=== PATIENT | male | born 1960 | race African-American/Black ===

== ENCOUNTER 2021-07-17 09:51 | Inpatient (IN) | payer OTHER ==
[2021-07-17] MEDS ORDERED: MAG HYDROX/AL HYDROX/SIMETH 30 ML UNIT-DOSE CUP PO PRN (11:43)
[2021-07-17] MEDS ORDERED: guaiFENesin 200 MG/10 ML 10 ML UNIT-DOSE CUPS PO PRN (11:43)
[2021-07-17] MEDS ORDERED: P-EPHED 60MG/TRIPROLIDI 2.5MG TABLET PO PRN (11:43)
[2021-07-17] MEDS ORDERED: MAGNESIUM HYDROX 2400MG/30ML ORAL SUSPENSION 30 ML CUP PO PRN (11:43)
[2021-07-17] MEDS ORDERED: MAGNESIUM CITRATE 300 ML BOTTLE PO PRN (11:43)
[2021-07-17] MEDS ORDERED: LOPERAMIDE HCL 2 MG CAPSULE PO PRN (11:43)
[2021-07-17] MEDS ORDERED: NICOTINE 10 MG CARTRIDGE (INHALER) IH PRN (11:43)
[2021-07-17 16:31] VITALS: BMI 32.5
[2021-07-17] MEDS: NICOTINE 14 MG/24 HOURS TOPICAL PATCH TD SCH (17:25)
[2021-07-17] MEDS: hydrOXYzine PAMOATE 25 MG CAPSULE (FP) PO SCH ×2 (17:25→21:07)
[2021-07-17] MEDS: amLODIPine BESYLATE 10 MG TABLET (FP) PO SCH (17:25)
[2021-07-17] MEDS: IBUPROFEN 400 MG TABLET (FP) PO PRN (17:26)
[2021-07-17] MEDS: PRENATAL VITAMINS W/ FOLIC ACID TABLET (FP) PO SCH (17:30)
[2021-07-17 18:06] LABS: HEMATOCRIT 31.2 % (35.4-49); HEMOGLOBIN 9.7 GM/dL (11.7-16.9); MCH 24.2 pg (25.7-33.7); MCHC 31.2 g/dl (32.0-35.9); MEAN CELL VOLUME 77.4 fl (80-96); MEAN PLT VOLUME 8.6 fl (7.5-11.1); PLATELET COUNT 224 10^3/uL (134-434); RBC 4.03 M/mm3 (4.00-5.60); WHITE BLOOD COUNT 6.5 K/mm3 (4.0-10.0)
[2021-07-17 18:22] LABS: ALBUMIN 4.1 g/dl (3.4-5.0); BLOOD UREA NITROGEN 19.7 mg/dL (7-18)
[2021-07-17 18:25] LABS: CREATININE 1.7 mg/dL (0.55-1.3)
[2021-07-17 18:27] LABS: BILIRUBIN,TOTAL 0.8 mg/dL (0.2-1); TOT PROT 7.4 g/dl (6.4-8.2)
[2021-07-17 18:39] LABS: SYPHILIS W/ RPR CONF NON-REACTIVE (NONREACTIVE)
[2021-07-17] MEDS: AMIODARONE HCL 200 MG TABLET PO SCH (18:50)
[2021-07-17] MEDS: GABAPENTIN 300 MG CAPSULE PO SCH (21:07)
[2021-07-17] MEDS: THIAMINE HCL 100 MG TABLET (FP) PO SCH (21:07)
[2021-07-17] MEDS: ATORVASTATIN CA 40 MG TABLET (FP) PO SCH (21:07)
[2021-07-17] MEDS: APIXABAN 5 MG TABLET PO SCH (21:07)
[2021-07-17] MEDS: MELATONIN 5 MG TABLETS PO SCH (21:07)
[2021-07-18] MEDS: GABAPENTIN 300 MG CAPSULE PO SCH ×3 (06:46→21:25)
[2021-07-18] MEDS: hydrOXYzine PAMOATE 25 MG CAPSULE (FP) PO SCH ×2 (06:46→11:06)
[2021-07-18] MEDS: ASPIRIN 81 MG CHEWABLE TABLETS PO SCH (11:00)
[2021-07-18] MEDS: APIXABAN 5 MG TABLET PO SCH ×2 (11:00→21:25)
[2021-07-18] MEDS: IBUPROFEN 400 MG TABLET (FP) PO PRN (11:04)
[2021-07-18] MEDS: AMIODARONE HCL 200 MG TABLET PO SCH (11:04)
[2021-07-18] MEDS: NICOTINE 14 MG/24 HOURS TOPICAL PATCH TD SCH (11:06)
[2021-07-18] MEDS: amLODIPine BESYLATE 10 MG TABLET (FP) PO SCH (11:06)
[2021-07-18] MEDS: PRENATAL VITAMINS W/ FOLIC ACID TABLET (FP) PO SCH (11:06)
[2021-07-18] MEDS ORDERED: SERTRALINE HCL 50 MG TABLET (FP) PO ONE (11:15)
[2021-07-18] MEDS ORDERED: hydrOXYzine PAMOATE 25 MG CAPSULE (FP) PO PRN (13:08)
[2021-07-18] MEDS: ACETAMINOPHEN 325 MG TABLET (FP) PO PRN (14:30)
[2021-07-18] MEDS: FERROUS SO4 325 MG TABLET (FP) PO SCH (17:07)
[2021-07-18 21:24] LABS: EPI CELLS >36 /uL (0-25.1); HYALINE CASTS 16 /uL (0-3.1); PH,URINE 5.5 (5.0-8.0); URINE APPEARANCE TURBID; URINE BACTERIA 12 /uL (0-1359); URINE BILIRUBIN 1+ (NEGATIVE); URINE COLOR DK YELLOW; URINE GLUCOSE (UA) NEGATIVE (NEGATIVE); URINE KETONE TRACE (NEGATIVE); URINE LEUK ESTERASE NEGATIVE (NEGATIVE); URINE NITRITE NEGATIVE (NEGATIVE); URINE PROTEIN 1+ (NEGATIVE); URINE RBC 23 /uL (0-23.9); URINE UROBILINOGEN 0.2 mg/dL (0.2-1.0); URINE WBC 20 /uL (0-25.8)
[2021-07-18] MEDS: THIAMINE HCL 100 MG TABLET (FP) PO SCH (21:25)
[2021-07-18] MEDS: MELATONIN 5 MG TABLETS PO SCH (21:25)
[2021-07-18] MEDS: ATORVASTATIN CA 40 MG TABLET (FP) PO SCH (21:25)
[2021-07-18] MEDS: traZODone HCL 100 MG TABLET (FP) PO SCH (21:26)
[2021-07-19] MEDS: GABAPENTIN 300 MG CAPSULE PO SCH ×3 (07:29→21:09)
[2021-07-19] MEDS: FERROUS SO4 325 MG TABLET (FP) PO SCH ×2 (07:29→18:18)
[2021-07-19] MEDS: PRENATAL VITAMINS W/ FOLIC ACID TABLET (FP) PO SCH (09:28)
[2021-07-19] MEDS: ASPIRIN 81 MG CHEWABLE TABLETS PO SCH (09:28)
[2021-07-19] MEDS: APIXABAN 5 MG TABLET PO SCH ×2 (09:28→21:09)
[2021-07-19] MEDS: AMIODARONE HCL 200 MG TABLET PO SCH (09:29)
[2021-07-19] MEDS: SERTRALINE HCL 50 MG TABLET (FP) PO SCH (09:29)
[2021-07-19] MEDS: ACETAMINOPHEN 325 MG TABLET (FP) PO PRN (09:29)
[2021-07-19] MEDS: amLODIPine BESYLATE 10 MG TABLET (FP) PO SCH (09:29)
[2021-07-19] MEDS: NICOTINE 14 MG/24 HOURS TOPICAL PATCH TD SCH (09:30)
[2021-07-19] MEDS: traZODone HCL 100 MG TABLET (FP) PO SCH (21:09)
[2021-07-19] MEDS: THIAMINE HCL 100 MG TABLET (FP) PO SCH (21:09)
[2021-07-19] MEDS: ATORVASTATIN CA 40 MG TABLET (FP) PO SCH (21:09)
[2021-07-19] MEDS: MELATONIN 5 MG TABLETS PO SCH (21:10)
[2021-07-19] MEDS: BACITRACIN 0.9 GM PACKET TP SCH (21:56)
[2021-07-20] MEDS: GABAPENTIN 300 MG CAPSULE PO SCH ×3 (06:35→21:26)
[2021-07-20] MEDS: ACETAMINOPHEN 325 MG TABLET (FP) PO PRN ×3 (06:36→21:51)
[2021-07-20] MEDS: FERROUS SO4 325 MG TABLET (FP) PO SCH ×2 (07:03→18:50)
[2021-07-20] MEDS: APIXABAN 5 MG TABLET PO SCH ×2 (10:31→21:26)
[2021-07-20] MEDS: BACITRACIN 0.9 GM PACKET TP SCH (10:31)
[2021-07-20] MEDS: AMIODARONE HCL 200 MG TABLET PO SCH (10:32)
[2021-07-20] MEDS: amLODIPine BESYLATE 10 MG TABLET (FP) PO SCH (10:32)
[2021-07-20] MEDS: NICOTINE 14 MG/24 HOURS TOPICAL PATCH TD SCH (10:32)
[2021-07-20] MEDS: SERTRALINE HCL 50 MG TABLET (FP) PO SCH (10:32)
[2021-07-20] MEDS: ASPIRIN 81 MG CHEWABLE TABLETS PO SCH (10:33)
[2021-07-20] MEDS: PRENATAL VITAMINS W/ FOLIC ACID TABLET (FP) PO SCH (10:34)
[2021-07-20] MEDS: ATORVASTATIN CA 40 MG TABLET (FP) PO SCH (21:26)
[2021-07-20] MEDS: traZODone HCL 100 MG TABLET (FP) PO SCH (21:26)
[2021-07-20] MEDS: THIAMINE HCL 100 MG TABLET (FP) PO SCH (21:26)
[2021-07-20] MEDS: MELATONIN 5 MG TABLETS PO SCH (21:26)
[2021-07-21] MEDS: GABAPENTIN 300 MG CAPSULE PO SCH ×3 (06:17→21:18)
[2021-07-21] MEDS: FERROUS SO4 325 MG TABLET (FP) PO SCH ×2 (07:27→16:46)
[2021-07-21] MEDS: ACETAMINOPHEN 325 MG TABLET (FP) PO PRN ×2 (08:37→21:20)
[2021-07-21] MEDS: PRENATAL VITAMINS W/ FOLIC ACID TABLET (FP) PO SCH (10:00)
[2021-07-21] MEDS: SERTRALINE HCL 50 MG TABLET (FP) PO SCH (10:00)
[2021-07-21] MEDS: APIXABAN 5 MG TABLET PO SCH ×2 (10:00→21:18)
[2021-07-21] MEDS: NICOTINE 14 MG/24 HOURS TOPICAL PATCH TD SCH (10:01)
[2021-07-21] MEDS: AMIODARONE HCL 200 MG TABLET PO SCH (10:01)
[2021-07-21] MEDS: ASPIRIN 81 MG CHEWABLE TABLETS PO SCH (10:01)
[2021-07-21] MEDS: amLODIPine BESYLATE 10 MG TABLET (FP) PO SCH (10:01)
[2021-07-21] MEDS: BACITRACIN 0.9 GM PACKET TP SCH (10:01)
[2021-07-21] MEDS ORDERED: ACETAMINOPHEN 325 MG TABLET (FP) PO PRN (11:31)
[2021-07-21] MEDS: LIDOCAINE 5% TOPICAL PATCH TP SCH (12:15)
[2021-07-21] MEDS: THIAMINE HCL 100 MG TABLET (FP) PO SCH (21:18)
[2021-07-21] MEDS: ATORVASTATIN CA 40 MG TABLET (FP) PO SCH (21:18)
[2021-07-21] MEDS: MELATONIN 5 MG TABLETS PO SCH (21:18)
[2021-07-21] MEDS: LIDOCAINE PATCH REMOVAL MC SCH (21:19)
[2021-07-21] MEDS: traZODone HCL 100 MG TABLET (FP) PO SCH (21:19)
[2021-07-22] MEDS: GABAPENTIN 300 MG CAPSULE PO SCH ×3 (06:30→21:24)
[2021-07-22] MEDS: FERROUS SO4 325 MG TABLET (FP) PO SCH ×2 (07:20→16:38)
[2021-07-22] MEDS: ACETAMINOPHEN 325 MG TABLET (FP) PO PRN ×2 (08:30→21:25)
[2021-07-22] MEDS: BACITRACIN 0.9 GM PACKET TP SCH (10:07)
[2021-07-22] MEDS: SERTRALINE HCL 50 MG TABLET (FP) PO SCH (10:07)
[2021-07-22] MEDS: amLODIPine BESYLATE 10 MG TABLET (FP) PO SCH (10:07)
[2021-07-22] MEDS: LIDOCAINE 5% TOPICAL PATCH TP SCH (10:08)
[2021-07-22] MEDS: PRENATAL VITAMINS W/ FOLIC ACID TABLET (FP) PO SCH (10:08)
[2021-07-22] MEDS: APIXABAN 5 MG TABLET PO SCH ×2 (10:08→21:24)
[2021-07-22] MEDS: AMIODARONE HCL 200 MG TABLET PO SCH (10:08)
[2021-07-22] MEDS: ASPIRIN 81 MG CHEWABLE TABLETS PO SCH (10:08)
[2021-07-22] MEDS: NICOTINE 14 MG/24 HOURS TOPICAL PATCH TD SCH (10:09)
[2021-07-22] MEDS: METHOCARBAMOL 500 MG TABLET PO PRN ×2 (10:09→18:29)
[2021-07-22 10:23] LABS: CALCIUM 8.5 mg/dL (8.5-10.1)
[2021-07-22 10:24] LABS: ALBUMIN 3.3 g/dl (3.4-5.0); BLOOD UREA NITROGEN 12.9 mg/dL (7-18)
[2021-07-22 10:28] LABS: CREATININE 1.2 mg/dL (0.55-1.3)
[2021-07-22 10:29] LABS: BILIRUBIN,TOTAL 0.3 mg/dL (0.2-1); TOT PROT 6.5 g/dl (6.4-8.2)
[2021-07-22] MEDS: MELATONIN 5 MG TABLETS PO SCH (21:24)
[2021-07-22] MEDS: ATORVASTATIN CA 40 MG TABLET (FP) PO SCH (21:24)
[2021-07-22] MEDS: THIAMINE HCL 100 MG TABLET (FP) PO SCH (21:24)
[2021-07-22] MEDS: traZODone HCL 50 MG TABLET (FP) PO SCH (21:25)
[2021-07-22] MEDS: LIDOCAINE PATCH REMOVAL MC SCH (21:26)
[2021-07-23] MEDS: METHOCARBAMOL 500 MG TABLET PO PRN ×2 (05:56→10:12)
[2021-07-23] MEDS: GABAPENTIN 300 MG CAPSULE PO SCH ×3 (05:56→21:15)
[2021-07-23] MEDS: ACETAMINOPHEN 325 MG TABLET (FP) PO PRN (05:59)
[2021-07-23] MEDS: FERROUS SO4 325 MG TABLET (FP) PO SCH ×2 (07:35→16:29)
[2021-07-23] MEDS: PRENATAL VITAMINS W/ FOLIC ACID TABLET (FP) PO SCH (10:11)
[2021-07-23] MEDS: BACITRACIN 0.9 GM PACKET TP SCH (10:11)
[2021-07-23] MEDS: SERTRALINE HCL 50 MG TABLET (FP) PO SCH (10:12)
[2021-07-23] MEDS: AMIODARONE HCL 200 MG TABLET PO SCH (10:12)
[2021-07-23] MEDS: APIXABAN 5 MG TABLET PO SCH ×2 (10:12→21:16)
[2021-07-23] MEDS: amLODIPine BESYLATE 10 MG TABLET (FP) PO SCH (10:12)
[2021-07-23] MEDS: NICOTINE 14 MG/24 HOURS TOPICAL PATCH TD SCH (10:13)
[2021-07-23] MEDS: LIDOCAINE 5% TOPICAL PATCH TP SCH (10:13)
[2021-07-23] MEDS: ASPIRIN 81 MG CHEWABLE TABLETS PO SCH (10:13)
[2021-07-23] MEDS: MELATONIN 5 MG TABLETS PO SCH (21:15)
[2021-07-23] MEDS: THIAMINE HCL 100 MG TABLET (FP) PO SCH (21:15)
[2021-07-23] MEDS: ATORVASTATIN CA 40 MG TABLET (FP) PO SCH (21:15)
[2021-07-23] MEDS: LIDOCAINE PATCH REMOVAL MC SCH (21:16)
[2021-07-23] MEDS: traZODone HCL 50 MG TABLET (FP) PO SCH (21:16)
[2021-07-24] MEDS: GABAPENTIN 300 MG CAPSULE PO SCH ×3 (06:13→21:18)
[2021-07-24] MEDS: METHOCARBAMOL 500 MG TABLET PO PRN ×3 (06:14→21:19)
[2021-07-24] MEDS: FERROUS SO4 325 MG TABLET (FP) PO SCH ×2 (07:24→17:08)
[2021-07-24] MEDS: ASPIRIN 81 MG CHEWABLE TABLETS PO SCH (09:30)
[2021-07-24] MEDS: PRENATAL VITAMINS W/ FOLIC ACID TABLET (FP) PO SCH (09:30)
[2021-07-24] MEDS: APIXABAN 5 MG TABLET PO SCH ×2 (09:30→21:18)
[2021-07-24] MEDS: amLODIPine BESYLATE 10 MG TABLET (FP) PO SCH (09:30)
[2021-07-24] MEDS: BACITRACIN 0.9 GM PACKET TP SCH (09:30)
[2021-07-24] MEDS: SERTRALINE HCL 50 MG TABLET (FP) PO SCH (09:30)
[2021-07-24] MEDS: NICOTINE 14 MG/24 HOURS TOPICAL PATCH TD SCH (09:31)
[2021-07-24] MEDS: AMIODARONE HCL 200 MG TABLET PO SCH (09:31)
[2021-07-24] MEDS: LIDOCAINE 5% TOPICAL PATCH TP SCH (09:31)
[2021-07-24] MEDS: ACETAMINOPHEN 325 MG TABLET (FP) PO PRN ×2 (09:32→21:20)
[2021-07-24] MEDS: ATORVASTATIN CA 40 MG TABLET (FP) PO SCH (21:17)
[2021-07-24] MEDS: traZODone HCL 50 MG TABLET (FP) PO SCH (21:18)
[2021-07-24] MEDS: THIAMINE HCL 100 MG TABLET (FP) PO SCH (21:18)
[2021-07-24] MEDS: MELATONIN 5 MG TABLETS PO SCH (21:21)
[2021-07-24] MEDS: LIDOCAINE PATCH REMOVAL MC SCH (21:21)
[2021-07-25] MEDS: GABAPENTIN 300 MG CAPSULE PO SCH ×3 (06:36→21:17)
[2021-07-25] MEDS: METHOCARBAMOL 500 MG TABLET PO PRN ×2 (06:37→09:27)
[2021-07-25] MEDS: FERROUS SO4 325 MG TABLET (FP) PO SCH ×2 (07:10→16:32)
[2021-07-25] MEDS: LIDOCAINE 5% TOPICAL PATCH TP SCH (09:27)
[2021-07-25] MEDS: amLODIPine BESYLATE 10 MG TABLET (FP) PO SCH (09:27)
[2021-07-25] MEDS: AMIODARONE HCL 200 MG TABLET PO SCH (09:27)
[2021-07-25] MEDS: ASPIRIN 81 MG CHEWABLE TABLETS PO SCH (09:27)
[2021-07-25] MEDS: PRENATAL VITAMINS W/ FOLIC ACID TABLET (FP) PO SCH (09:27)
[2021-07-25] MEDS: SERTRALINE HCL 50 MG TABLET (FP) PO SCH (09:27)
[2021-07-25] MEDS: BACITRACIN 0.9 GM PACKET TP SCH (09:27)
[2021-07-25] MEDS: APIXABAN 5 MG TABLET PO SCH ×2 (09:27→21:18)
[2021-07-25] MEDS: NICOTINE 14 MG/24 HOURS TOPICAL PATCH TD SCH (09:28)
[2021-07-25] MEDS: METHOCARBAMOL 750 MG TABLET PO PRN ×2 (14:36→18:46)
[2021-07-25] MEDS: THIAMINE HCL 100 MG TABLET (FP) PO SCH (21:17)
[2021-07-25] MEDS: ATORVASTATIN CA 40 MG TABLET (FP) PO SCH (21:17)
[2021-07-25] MEDS: MELATONIN 5 MG TABLETS PO SCH (21:17)
[2021-07-25] MEDS: traZODone HCL 50 MG TABLET (FP) PO SCH (21:18)
[2021-07-25] MEDS: LIDOCAINE PATCH REMOVAL MC SCH (21:19)
[2021-07-26] MEDS: GABAPENTIN 300 MG CAPSULE PO SCH ×3 (06:25→21:15)
[2021-07-26] MEDS: METHOCARBAMOL 750 MG TABLET PO PRN ×3 (06:26→21:16)
[2021-07-26] MEDS: FERROUS SO4 325 MG TABLET (FP) PO SCH ×2 (07:22→16:35)
[2021-07-26] MEDS: BACITRACIN 0.9 GM PACKET TP SCH (10:24)
[2021-07-26] MEDS: SERTRALINE HCL 50 MG TABLET (FP) PO SCH (10:24)
[2021-07-26] MEDS: LIDOCAINE 5% TOPICAL PATCH TP SCH (10:24)
[2021-07-26] MEDS: amLODIPine BESYLATE 10 MG TABLET (FP) PO SCH (10:24)
[2021-07-26] MEDS: APIXABAN 5 MG TABLET PO SCH ×2 (10:24→21:15)
[2021-07-26] MEDS: ASPIRIN 81 MG CHEWABLE TABLETS PO SCH (10:24)
[2021-07-26] MEDS: NICOTINE 14 MG/24 HOURS TOPICAL PATCH TD SCH (10:24)
[2021-07-26] MEDS: PRENATAL VITAMINS W/ FOLIC ACID TABLET (FP) PO SCH (10:24)
[2021-07-26] MEDS: AMIODARONE HCL 200 MG TABLET PO SCH (10:25)
[2021-07-26] MEDS: traZODone HCL 50 MG TABLET (FP) PO SCH (21:15)
[2021-07-26] MEDS: ATORVASTATIN CA 40 MG TABLET (FP) PO SCH (21:16)
[2021-07-26] MEDS: LIDOCAINE PATCH REMOVAL MC SCH (21:16)
[2021-07-26] MEDS: MELATONIN 5 MG TABLETS PO SCH (21:16)
[2021-07-26] MEDS: THIAMINE HCL 100 MG TABLET (FP) PO SCH (21:16)
[2021-07-27] MEDS: METHOCARBAMOL 750 MG TABLET PO PRN ×3 (06:30→21:15)
[2021-07-27] MEDS: GABAPENTIN 300 MG CAPSULE PO SCH ×3 (06:31→21:14)
[2021-07-27] MEDS: FERROUS SO4 325 MG TABLET (FP) PO SCH ×2 (08:37→16:47)
[2021-07-27] MEDS: PRENATAL VITAMINS W/ FOLIC ACID TABLET (FP) PO SCH (10:32)
[2021-07-27] MEDS: BACITRACIN 0.9 GM PACKET TP SCH (10:32)
[2021-07-27] MEDS: APIXABAN 5 MG TABLET PO SCH ×2 (10:33→21:15)
[2021-07-27] MEDS: NICOTINE 14 MG/24 HOURS TOPICAL PATCH TD SCH (10:33)
[2021-07-27] MEDS: amLODIPine BESYLATE 10 MG TABLET (FP) PO SCH (10:33)
[2021-07-27] MEDS: SERTRALINE HCL 50 MG TABLET (FP) PO SCH (10:33)
[2021-07-27] MEDS: ASPIRIN 81 MG CHEWABLE TABLETS PO SCH (10:33)
[2021-07-27] MEDS: AMIODARONE HCL 200 MG TABLET PO SCH (10:34)
[2021-07-27] MEDS: LIDOCAINE 5% TOPICAL PATCH TP SCH (10:34)
[2021-07-27] MEDS: traZODone HCL 50 MG TABLET (FP) PO SCH (21:14)
[2021-07-27] MEDS: ATORVASTATIN CA 40 MG TABLET (FP) PO SCH (21:15)
[2021-07-27] MEDS: MELATONIN 5 MG TABLETS PO SCH (21:15)
[2021-07-27] MEDS: THIAMINE HCL 100 MG TABLET (FP) PO SCH (21:15)
[2021-07-27] MEDS: LIDOCAINE PATCH REMOVAL MC SCH (21:16)
[2021-07-28] MEDS: ACETAMINOPHEN 325 MG TABLET (FP) PO PRN (06:29)
[2021-07-28] MEDS: GABAPENTIN 300 MG CAPSULE PO SCH ×3 (06:31→21:02)
[2021-07-28] MEDS: FERROUS SO4 325 MG TABLET (FP) PO SCH ×2 (07:10→16:46)
[2021-07-28] MEDS: METHOCARBAMOL 750 MG TABLET PO PRN ×2 (09:03→16:46)
[2021-07-28] MEDS: BACITRACIN 0.9 GM PACKET TP SCH (10:10)
[2021-07-28] MEDS: ASPIRIN 81 MG CHEWABLE TABLETS PO SCH (10:11)
[2021-07-28] MEDS: NICOTINE 14 MG/24 HOURS TOPICAL PATCH TD SCH (10:11)
[2021-07-28] MEDS: amLODIPine BESYLATE 10 MG TABLET (FP) PO SCH (10:11)
[2021-07-28] MEDS: AMIODARONE HCL 200 MG TABLET PO SCH (10:11)
[2021-07-28] MEDS: SERTRALINE HCL 50 MG TABLET (FP) PO SCH (10:11)
[2021-07-28] MEDS: PRENATAL VITAMINS W/ FOLIC ACID TABLET (FP) PO SCH (10:11)
[2021-07-28] MEDS: APIXABAN 5 MG TABLET PO SCH ×2 (10:11→21:02)
[2021-07-28] MEDS: LIDOCAINE 5% TOPICAL PATCH TP SCH (10:12)
[2021-07-28] MEDS: ATORVASTATIN CA 40 MG TABLET (FP) PO SCH (21:03)
[2021-07-28] MEDS: THIAMINE HCL 100 MG TABLET (FP) PO SCH (21:03)
[2021-07-28] MEDS: MELATONIN 5 MG TABLETS PO SCH (21:03)
[2021-07-28] MEDS: traZODone HCL 50 MG TABLET (FP) PO SCH (21:03)
[2021-07-28] MEDS: LIDOCAINE PATCH REMOVAL MC SCH (21:04)
[2021-07-29] MEDS: METHOCARBAMOL 750 MG TABLET PO PRN ×4 (05:50→21:19)
[2021-07-29] MEDS: GABAPENTIN 300 MG CAPSULE PO SCH ×3 (05:50→21:19)
[2021-07-29] MEDS: FERROUS SO4 325 MG TABLET (FP) PO SCH ×2 (07:08→16:36)
[2021-07-29] MEDS: amLODIPine BESYLATE 10 MG TABLET (FP) PO SCH (09:18)
[2021-07-29] MEDS: BACITRACIN 0.9 GM PACKET TP SCH (09:18)
[2021-07-29] MEDS: PRENATAL VITAMINS W/ FOLIC ACID TABLET (FP) PO SCH (09:18)
[2021-07-29] MEDS: NICOTINE 14 MG/24 HOURS TOPICAL PATCH TD SCH (09:18)
[2021-07-29] MEDS: AMIODARONE HCL 200 MG TABLET PO SCH (09:18)
[2021-07-29] MEDS: ASPIRIN 81 MG CHEWABLE TABLETS PO SCH (09:18)
[2021-07-29] MEDS: SERTRALINE HCL 50 MG TABLET (FP) PO SCH (09:18)
[2021-07-29] MEDS: APIXABAN 5 MG TABLET PO SCH ×2 (09:19→21:19)
[2021-07-29] MEDS: LIDOCAINE 5% TOPICAL PATCH TP SCH (09:19)
[2021-07-29] MEDS: ATORVASTATIN CA 40 MG TABLET (FP) PO SCH (21:19)
[2021-07-29] MEDS: MELATONIN 5 MG TABLETS PO SCH (21:19)
[2021-07-29] MEDS: traZODone HCL 50 MG TABLET (FP) PO SCH (21:19)
[2021-07-29] MEDS: THIAMINE HCL 100 MG TABLET (FP) PO SCH (21:19)
[2021-07-29] MEDS: LIDOCAINE PATCH REMOVAL MC SCH (21:20)
[2021-07-30] MEDS: GABAPENTIN 300 MG CAPSULE PO SCH ×3 (06:13→21:23)
[2021-07-30] MEDS: METHOCARBAMOL 750 MG TABLET PO PRN ×3 (06:13→21:23)
[2021-07-30] MEDS: FERROUS SO4 325 MG TABLET (FP) PO SCH ×2 (07:05→16:37)
[2021-07-30 07:09] VITALS: TEMP 97.7
[2021-07-30] MEDS: BACITRACIN 0.9 GM PACKET TP SCH (10:09)
[2021-07-30] MEDS: SERTRALINE HCL 50 MG TABLET (FP) PO SCH (10:10)
[2021-07-30] MEDS: PRENATAL VITAMINS W/ FOLIC ACID TABLET (FP) PO SCH (10:10)
[2021-07-30] MEDS: APIXABAN 5 MG TABLET PO SCH ×2 (10:10→21:24)
[2021-07-30] MEDS: amLODIPine BESYLATE 10 MG TABLET (FP) PO SCH (10:10)
[2021-07-30] MEDS: ASPIRIN 81 MG CHEWABLE TABLETS PO SCH (10:10)
[2021-07-30] MEDS: NICOTINE 14 MG/24 HOURS TOPICAL PATCH TD SCH (10:10)
[2021-07-30] MEDS: AMIODARONE HCL 200 MG TABLET PO SCH (10:11)
[2021-07-30] MEDS: LIDOCAINE 5% TOPICAL PATCH TP SCH (10:11)
[2021-07-30] MEDS: MELATONIN 5 MG TABLETS PO SCH (21:23)
[2021-07-30] MEDS: THIAMINE HCL 100 MG TABLET (FP) PO SCH (21:23)
[2021-07-30] MEDS: LIDOCAINE PATCH REMOVAL MC SCH (21:24)
[2021-07-30] MEDS: traZODone HCL 50 MG TABLET (FP) PO SCH (21:24)
[2021-07-30] MEDS: ATORVASTATIN CA 40 MG TABLET (FP) PO SCH (21:24)
[2021-07-31] MEDS: GABAPENTIN 300 MG CAPSULE PO SCH (06:30)
[2021-07-31] MEDS: METHOCARBAMOL 750 MG TABLET PO PRN (06:32)
[2021-07-31 06:59] VITALS: BP 149/87; PULSE 89
[2021-07-31] MEDS: FERROUS SO4 325 MG TABLET (FP) PO SCH (07:04)
[2021-07-31] MEDS: ASPIRIN 81 MG CHEWABLE TABLETS PO SCH (08:37)
[2021-07-31] MEDS: SERTRALINE HCL 50 MG TABLET (FP) PO SCH (08:37)
[2021-07-31] MEDS: APIXABAN 5 MG TABLET PO SCH (08:37)
[2021-07-31] MEDS: LIDOCAINE 5% TOPICAL PATCH TP SCH (08:38)
[2021-07-31] MEDS: PRENATAL VITAMINS W/ FOLIC ACID TABLET (FP) PO SCH (08:38)
[2021-07-31] MEDS: amLODIPine BESYLATE 10 MG TABLET (FP) PO SCH (08:38)
[2021-07-31] MEDS: BACITRACIN 0.9 GM PACKET TP SCH (08:38)
== END 2021-07-31 09:20 | disposition home or self-care (01) | DRG 772 ==
LOC: YASAS 09:51 → Y3W 15:43
PROVIDERS: ADMIT Allergy & Immunology; ATTEND Psychiatry & Neurology Pain Medicine
PROC: HZ42ZZZ Group Counseling for Substance Abuse Treatment, Cognitive-Behavioral (ICD-10-PCS; principal; 2021-07-17)
DX: F10.20 Alcohol dependence, uncomplicated (principal); F12.20 Cannabis dependence, uncomplicated; F19.280 Other psychoactive substance dependence with psychoactive substance-induced anxiety disorder; F19.24 Other psychoactive substance dependence with psychoactive substance-induced mood disorder; F43.10 Post-traumatic stress disorder, unspecified; I11.0 Hypertensive heart disease with heart failure; I50.9 Heart failure, unspecified; R73.9 Hyperglycemia, unspecified; Z62.810 Personal history of physical and sexual abuse in childhood; Z91.410 Personal history of adult physical and sexual abuse; Z79.01 Long term (current) use of anticoagulants; Z28.311 Partially vaccinated for COVID-19; S22.32XD Fracture of one rib, left side, subsequent encounter for fracture with routine healing; W17.89XD Other fall from one level to another, subsequent encounter
CPT/HCPCS: 36415; 71101-TC-LT-FY; 80053; 81003; 82962; 83036; 85027; 86780; 86803; 93005; 93010; C9803-CS; U0003; U0005

== ENCOUNTER 2022-04-07 11:09 | Inpatient (IN) | payer OTHER ==
[2022-04-07 12:21] VITALS: BMI 34.0
[2022-04-07] MEDS ORDERED: LORazepam 1 MG TABLET PO PRN (12:43)
[2022-04-07] MEDS ORDERED: METHOCARBAMOL 500 MG TABLET PO PRN (12:43)
[2022-04-07] MEDS ORDERED: BISMUTH SUBSALICYLATE 262 MG/15 ML BTL PO PRN (12:43)
[2022-04-07] MEDS ORDERED: LORazepam 2 MG TABLET PO ONE (12:43)
[2022-04-07] MEDS ORDERED: IBUPROFEN 600 MG TABLET (FP) PO PRN (12:43)
[2022-04-07] MEDS ORDERED: DICYCLOMINE HCL 10 MG CAPSULE PO PRN (12:43)
[2022-04-07] MEDS ORDERED: LOPERAMIDE HCL 2 MG CAPSULE PO PRN (12:43)
[2022-04-07] MEDS ORDERED: BENZOCAINE/MENTHOL (CHLORASEPTIC ) LOZENGE MM PRN (12:43)
[2022-04-07] MEDS ORDERED: ACETAMINOPHEN 325 MG TABLET (FP) PO PRN ×2 (12:43)
[2022-04-07] MEDS ORDERED: NALOXONE HCL (KLOXXADO) 8 MG SPRAY NS PRN (12:43)
[2022-04-07] MEDS ORDERED: ONDANSETRON *ODT* 4 MG TABLET SL PRN (12:43)
[2022-04-07] MEDS ORDERED: NICOTINE 10 MG CARTRIDGE (INHALER) IH PRN (12:43)
[2022-04-07] MEDS ORDERED: IBUPROFEN 400 MG TABLET (FP) PO PRN (12:43)
[2022-04-07] MEDS ORDERED: POLYETHYLENE GLYCOL (HEALTHYLAX) 3350 17 GM PACKET PO PRN (12:43)
[2022-04-07] MEDS ORDERED: MAGNESIUM HYDROX 2400MG/30ML ORAL SUSPENSION 30 ML CUP PO PRN (12:43)
[2022-04-07] MEDS ORDERED: MAG HYDROX/AL HYDROX/SIMETH 30 ML UNIT-DOSE CUP PO PRN (12:43)
[2022-04-07] MEDS ORDERED: LORazepam 2 MG TABLET ONE (13:30)
[2022-04-07] MEDS ORDERED: NICOTINE 14 MG/24 HOURS TOPICAL PATCH TD ONE (13:31)
[2022-04-07] MEDS ORDERED: ONDANSETRON *ODT* 4 MG TABLET ONE (13:31)
[2022-04-07] MEDS: PRENATAL VITAMINS W/ FOLIC ACID TABLET (FP) PO SCH (13:32)
[2022-04-07] MEDS: NICOTINE 14 MG/24 HOURS TOPICAL PATCH TD SCH (13:45)
[2022-04-07] MEDS ORDERED: NAPROXEN PO SCH (14:30)
[2022-04-07] MEDS: hydrOXYzine PAMOATE 25 MG CAPSULE (FP) PO PRN (14:57)
[2022-04-07] MEDS ORDERED: ALBUTEROL SO4 HFA INHALER IH SCH (16:00)
[2022-04-07 17:26] LABS: HEMATOCRIT 32.1 % (35.4-49); HEMOGLOBIN 10.2 GM/dL (11.7-16.9); MCH 24.9 pg (25.7-33.7); MCHC 31.6 g/dl (32.0-35.9); MEAN CELL VOLUME 78.7 fl (80-96); MEAN PLT VOLUME 8.8 fl (7.5-11.1); PLATELET COUNT 259 10^3/uL (134-434); RBC 4.08 M/mm3 (4.00-5.60); WHITE BLOOD COUNT 10.1 K/mm3 (4.0-10.0)
[2022-04-07] MEDS: ALBUTEROL SO4 HFA INHALER IH PRN ×2 (17:28→22:25)
[2022-04-07] MEDS: LORazepam 2 MG TABLET PO SCH ×2 (17:29→22:25)
[2022-04-07 18:49] LABS: CALCIUM 8.6 mg/dL (8.5-10.1)
[2022-04-07 18:53] LABS: CREATININE 1.4 mg/dL (0.55-1.3)
[2022-04-07 18:54] LABS: BILIRUBIN,TOTAL 0.4 mg/dL (0.2-1); TOT PROT 6.7 g/dl (6.4-8.2)
[2022-04-07] MEDS ORDERED: APIXABAN 5 MG TABLET PO SCH (22:00)
[2022-04-07] MEDS ORDERED: MELATONIN 5 MG TABLETS PO SCH (22:00)
[2022-04-07] MEDS: THIAMINE HCL 100 MG TABLET (FP) PO SCH (22:25)
[2022-04-07] MEDS: ATORVASTATIN CA 40 MG TABLET (FP) PO SCH (22:25)
[2022-04-08] MEDS: LORazepam 2 MG TABLET PO SCH ×4 (05:42→22:25)
[2022-04-08] MEDS: ASPIRIN 81 MG CHEWABLE TABLETS PO SCH (10:21)
[2022-04-08] MEDS: amLODIPine BESYLATE 10 MG TABLET (FP) PO SCH (10:21)
[2022-04-08] MEDS: APIXABAN 5 MG PO SCH ×2 (10:21→22:24)
[2022-04-08] MEDS: PANTOPRAZOLE 40 MG TABLET PO SCH (10:21)
[2022-04-08] MEDS: PRENATAL VITAMINS W/ FOLIC ACID TABLET (FP) PO SCH (10:22)
[2022-04-08] MEDS: AMIODARONE HCL PO SCH (10:22)
[2022-04-08] MEDS: GABAPENTIN 300 MG CAPSULE PO SCH ×4 (10:25→22:23)
[2022-04-08] MEDS: NICOTINE 14 MG/24 HOURS TOPICAL PATCH TD SCH (10:29)
[2022-04-08] MEDS: LACTULOSE 20 GM/30 ML UDC (FOR ORAL USE ONLY) PO SCH ×2 (14:46→22:24)
[2022-04-08] MEDS: SERTRALINE HCL 50 MG TABLET (FP) PO SCH (15:27)
[2022-04-08] MEDS: RAMELTEON 8 MG PO SCH ×2 (15:59→22:28)
[2022-04-08] MEDS: traZODone HCL 50 MG TABLET (FP) PO SCH (22:22)
[2022-04-08] MEDS: ATORVASTATIN CA 40 MG TABLET (FP) PO SCH (22:23)
[2022-04-08] MEDS: THIAMINE HCL 100 MG TABLET (FP) PO SCH (22:23)
[2022-04-09] MEDS: LORazepam 1 MG TABLET PO SCH ×4 (05:55→22:16)
[2022-04-09] MEDS: LACTULOSE 20 GM/30 ML UDC (FOR ORAL USE ONLY) PO SCH ×3 (05:56→22:13)
[2022-04-09] MEDS: GABAPENTIN 300 MG CAPSULE PO SCH ×3 (05:56→22:15)
[2022-04-09] MEDS: hydrOXYzine PAMOATE 25 MG CAPSULE (FP) PO PRN (08:58)
[2022-04-09] MEDS: amLODIPine BESYLATE 10 MG TABLET (FP) PO SCH (10:08)
[2022-04-09] MEDS: PRENATAL VITAMINS W/ FOLIC ACID TABLET (FP) PO SCH (10:08)
[2022-04-09] MEDS: AMIODARONE HCL PO SCH (10:08)
[2022-04-09] MEDS: APIXABAN 5 MG PO SCH ×2 (10:08→22:16)
[2022-04-09] MEDS: SERTRALINE HCL 50 MG TABLET (FP) PO SCH (10:09)
[2022-04-09] MEDS: ASPIRIN 81 MG CHEWABLE TABLETS PO SCH (10:09)
[2022-04-09] MEDS: PANTOPRAZOLE 40 MG TABLET PO SCH (10:09)
[2022-04-09] MEDS: NICOTINE 14 MG/24 HOURS TOPICAL PATCH TD SCH (10:10)
[2022-04-09] MEDS: traZODone HCL 50 MG TABLET (FP) PO SCH (22:13)
[2022-04-09] MEDS: THIAMINE HCL 100 MG TABLET (FP) PO SCH (22:15)
[2022-04-09] MEDS: RAMELTEON 8 MG PO SCH (22:15)
[2022-04-09] MEDS: ATORVASTATIN CA 40 MG TABLET (FP) PO SCH (22:15)
[2022-04-10] MEDS ORDERED: LORazepam 0.5 MG TABLET PO PRN
[2022-04-10] MEDS: LORazepam 0.5 MG TABLET PO SCH ×4 (05:27→22:53)
[2022-04-10] MEDS: GABAPENTIN 300 MG CAPSULE PO SCH ×3 (05:27→22:47)
[2022-04-10] MEDS: LACTULOSE 20 GM/30 ML UDC (FOR ORAL USE ONLY) PO SCH ×3 (05:28→22:50)
[2022-04-10] MEDS: APIXABAN 5 MG PO SCH ×2 (10:02→22:49)
[2022-04-10] MEDS: ASPIRIN 81 MG CHEWABLE TABLETS PO SCH (10:02)
[2022-04-10] MEDS: AMIODARONE HCL PO SCH (10:02)
[2022-04-10] MEDS: SERTRALINE HCL 50 MG TABLET (FP) PO SCH (10:03)
[2022-04-10] MEDS: PANTOPRAZOLE 40 MG TABLET PO SCH (10:03)
[2022-04-10] MEDS: NICOTINE 14 MG/24 HOURS TOPICAL PATCH TD SCH (10:03)
[2022-04-10] MEDS: amLODIPine BESYLATE 10 MG TABLET (FP) PO SCH (10:03)
[2022-04-10] MEDS: PRENATAL VITAMINS W/ FOLIC ACID TABLET (FP) PO SCH (10:04)
[2022-04-10] MEDS: SPIRONOLACTONE 25 MG TABLET PO SCH (11:08)
[2022-04-10] MEDS: FLUTICASONE PROP 0.05% 16 GM NASAL SPRAY NS SCH ×2 (14:00→22:54)
[2022-04-10] MEDS: ATORVASTATIN CA 40 MG TABLET (FP) PO SCH (22:48)
[2022-04-10] MEDS: RAMELTEON 8 MG PO SCH (22:49)
[2022-04-10] MEDS: THIAMINE HCL 100 MG TABLET (FP) PO SCH (22:51)
[2022-04-10] MEDS: traZODone HCL 50 MG TABLET (FP) PO SCH (22:51)
[2022-04-11] MEDS ORDERED: LORazepam 0.5 MG TABLET PO ONE (05:00)
[2022-04-11] MEDS: LACTULOSE 20 GM/30 ML UDC (FOR ORAL USE ONLY) PO SCH (05:23)
[2022-04-11] MEDS: GABAPENTIN 300 MG CAPSULE PO SCH (05:23)
[2022-04-11] MEDS: amLODIPine BESYLATE 10 MG TABLET (FP) PO SCH (09:09)
[2022-04-11] MEDS: PANTOPRAZOLE 40 MG TABLET PO SCH (09:09)
[2022-04-11] MEDS: SERTRALINE HCL 50 MG TABLET (FP) PO SCH (09:09)
[2022-04-11] MEDS: ASPIRIN 81 MG CHEWABLE TABLETS PO SCH (09:09)
[2022-04-11] MEDS: APIXABAN 5 MG PO SCH (09:09)
[2022-04-11] MEDS: AMIODARONE HCL PO SCH (09:11)
[2022-04-11] MEDS: SPIRONOLACTONE 25 MG TABLET PO SCH (09:12)
[2022-04-11] MEDS: FLUTICASONE PROP 0.05% 16 GM NASAL SPRAY NS SCH (09:12)
[2022-04-11] MEDS: PRENATAL VITAMINS W/ FOLIC ACID TABLET (FP) PO SCH (09:13)
[2022-04-11] MEDS: NICOTINE 14 MG/24 HOURS TOPICAL PATCH TD SCH (09:13)
[2022-04-11 09:28] VITALS: BP 128/75; PULSE 73; RESP 17; TEMP 97.1
== END 2022-04-11 09:56 | disposition home or self-care (01) | DRG 775 ==
LOC: YASAS 11:09 → Y3N 12:49
PROVIDERS: ADMIT Allergy & Immunology; ATTEND Family Medicine
PROC: HZ2ZZZZ Detoxification Services for Substance Abuse Treatment (ICD-10-PCS; principal; 2022-04-07)
DX: F10.230 Alcohol dependence with withdrawal, uncomplicated (principal); F12.20 Cannabis dependence, uncomplicated; F17.210 Nicotine dependence, cigarettes, uncomplicated; F19.24 Other psychoactive substance dependence with psychoactive substance-induced mood disorder; F43.10 Post-traumatic stress disorder, unspecified; E72.20 Disorder of urea cycle metabolism, unspecified; G47.00 Insomnia, unspecified; I11.0 Hypertensive heart disease with heart failure; I50.9 Heart failure, unspecified; I48.91 Unspecified atrial fibrillation; Z79.01 Long term (current) use of anticoagulants; R79.89 Other specified abnormal findings of blood chemistry; Z28.310 Unvaccinated for COVID-19; Z28.9 Immunization not carried out for unspecified reason
CPT/HCPCS: 36415; 80053; 82140; 82962; 85027; 86780; 93005; 93010; C9803-CS; Q0162; U0003; U0005